=== PATIENT | male | born 1995 | race Hispanic/Latino ===

== ENCOUNTER 2017-09-17 18:29 | Emergency (ER) | payer BC ==
--- NOTE | 2017-09-19 12:59 | EKG ---
Test Reason : Blood Pressure : / mmHG Vent. Rate : 123 BPM Atrial Rate : 123 BPM P-R Int : 150 ms QRS Dur : 078 ms QT Int : 328 ms P-R-T Axes : 040 -11 010 degrees QTc Int : 469 ms Sinus tachycardia Possible Left atrial enlargement Left ventricular hypertrophy Abnormal ECG Confirmed by ZAHIDA ORANTES ([id number]), health editor KELLY SABILLON ([id number]) on 09/19/2017 12:58:45 PM Referred By: Confirmed By:ZAHIDA ORANTES
== END 2017-09-17 19:17 | disposition home or self-care (01) ==
LOC: ERS 18:29
DX: Z02.89 Encounter for other administrative examinations (principal); F41.9 Anxiety disorder, unspecified; F17.210 Nicotine dependence, cigarettes, uncomplicated
CPT/HCPCS: 93005; 99406

== ENCOUNTER 2017-10-03 18:46 | Emergency (ER) | payer BC | END 2017-10-03 19:16 | disposition left against medical advice (07) | LOC: ERS 18:46 | DX: Z53.21 Procedure and treatment not carried out due to patient leaving prior to being seen by health care provider (principal) ==

== ENCOUNTER 2019-03-11 10:47 | Inpatient (IN) | payer BC ==
[2019-03-11 11:29] LABS: #Basophils 0.1 thou/uL (0.0-0.2); #Eosinphils 0.2 thou/uL (0.0-0.7); #Lymphocytes 1.3 thou/uL (1.20-3.40); #Monocytes 0.7 thou/uL (0.11-0.59); #Neutrophils 10.3 thou/uL (1.40-6.50); %Basophils 0.4 % (0.0-1.0); %Eosinophils 1.8 % (0.0-10.0); %Monocytes 5.3 % (0.0-10.0); %Neutrophils 82.6 % (42.0-75.0); Hemoglobin 7.5 g/dL (14.0-18.0); Mean Corpuscular Hemoglobin 39.1 pg (27.0-31.0); Mean Platelet Volume 8.7 fL (7.4-10.4); Platelet Count 176 thou/uL (130-400); RBC Distribution Width 22.2 % (11.5-14.5); Red Blood Cell (RBC) Count 1.91 mill/uL (4.70-6.10); White Blood Cell (WBC) Count 12.5 thou/uL (4.8-10.8)
[2019-03-11 11:42] LABS: PTT 43.5 SEC (22.9-36.1); Prothrombin Time 43.9 SEC (12.0-14.7)
[2019-03-11 11:52] LABS: INR-International Normal Ratio 4.7
[2019-03-11 12:06] LABS: Base Excess-Venous -12.1 mmol/L (-2.0 to 3.0); Bicarbonate (HCO3v) 13.6 mmol/L (22.0-28.0); CO2 Tension (PvCO2) 29.3 mmHg (40.0-50.0); Calcium, Ionized 1.51 mmol/L (See Comments:); Chloride 108 mmol/L (98-107); Hemoglobin - Calc 7.9 g/dL (14.0-18.0); O2 Tension (PvO2) 36.9 mmHg (35.0-45.0); Sodium 134 mmol/L (138-145); T. Carbon Dioxide 14.5 mmol/L (22.0-28.0); pH (Venous) 7.274 (7.320-7.430)
[2019-03-11 12:34] LABS: Bilirubin, Total 37.4 mg/dL (0.2-1.2)
--- NOTE | 2019-03-11 13:27 | PDOC.FPRHP ---
- History of Present Illness Chief Complaint: abnormal lab History of Present Illness: 23yo M with pmh of alcohol misuse and liver cirrhosis presents on request of his GI clinic (Dr. Miller) to the hospital for an "abnormal lab". Pts reports that he has been more confused and lethargic at home over the last 3 days. He has also been eating and drinking less in general. He has had easier bleeding and bruising over the last few weeks. Since starting home lactulose he has had 7-8 BMs per day and maintains good orientation except over the last few days where he was confused and only having 5-6 BMs per day. Regarding his cirrhosis he was diagnosed on February 06 and spent some time hospitalized at [facility]. He was discharged and sent to rehab. DC from rehab 2 weeks ago. Pt has hx of drinking over 8 standardized drinks in malt liquor and beer per day prior to Dx but has not had any alcohol since diagnosis. Pt has never had UGIB. No nausea no vomiting. ED Course: labwork only - Allergies/Adverse Reactions Allergies Allergy/AdvReac Type Severity Reaction Status Date / Time No Known Allergies Allergy Unverified 03/11/19 15:47 - Home Medications Medication Instructions Recorded Confirmed Type AcetaZOLAMIDE [Diamox] 250 mg PO TID 03/11/19 03/11/19 History Citalopram [CeleXA] 10 mg PO DAILY 03/11/19 03/11/19 History Citalopram [CeleXA] 10 mg PO DAILY 03/11/19 03/11/19 History Lactulose 10 GM/15ML Oral Michelle 20 gm PO TID 03/11/19 03/11/19 History [Lactulose] Potassium Chloride [Klor-Con M20] 20 meq PO DAILY 03/11/19 03/11/19 History Spironolactone [Aldactone] 100 mg PO DAILY 03/11/19 03/11/19 History traMADol HCl [Tramadol HCl] 50 mg PO DAILY PRN 03/11/19 03/11/19 History traMADol HCl [Tramadol HCl] 50 mg PO Q4HR PRN 03/11/19 03/11/19 History - History PMHx: Anxiety, Liver cirrhosis 2/2 alcohol mis-use PSHx: L leg surgery FHx: non contributory Social: previous alcohol misuse (sober since 02/06/2019), previous smoking (none since 02/06), no drugs - Review of Systems General: reports: fatigue. denies: fever/chills Eyes: denies: eye pain, vision changes ENT: denies: nasal congestion, rhinorrhea Respiratory: denies: cough, shortness of breath Cardiovascular: denies: chest pain, palpitation Gastrointestinal: denies: nausea, vomiting, constipation, abdominal pain, GI bleeding Genitourinary: denies: incontinence, dysuria Skin: reports: jaundice. denies: rashes Musculoskeletal: denies: pain, tenderness Neurological: denies: syncope, seizure Psychological: reports: anxiety. denies: depression - Vital signs BP: 126/62, Pulse: 99, RR 20, weight 72kg, Temp: 97.7 (Oral), O2 sat: 100 on Room Air, Time: 03/11/2019 10:53. - Physical Exam Constitutional: other (pt appears fatigued, only answering questions non verbally) HEENT: EOMI, grossly normal vision, grossly normal hearing, other (scleral icterus) Neck: supple, trachea midline Chest: no-tender to palpation Heart: RRR, other (grade 4/6 holosystolic murmur) Lungs: CTAB, no respiratory distress Abdomen: soft, non-tender, no masses/distention Musculoskeletal: normal structure -Musculoskeletal: bilat LE contracted to with some increased tone. Neurological: normal sensation Skin: good turgor -Skin: jaundice Heme/Lymphatic: no purpura, no petechia -Psychiatric: non verbal but communcative with head nods FMR H&P: Results - Labs Result Diagrams: 03/11/19 11:11 03/11/19 11:11 Lab results: WBC 12.5 thou/uL (4.8-10.8) H 03/11/19 11:11 Hgb 7.5 g/dL (14.0-18.0) L 03/11/19 11:11 Hct 24.1 % (42.0-52.0) L 03/11/19 11:11 MCV 126.0 fL (78.0-98.0) H 03/11/19 11:11 Plt Count 176 thou/uL (130-400) 03/11/19 11:11 Neutrophils % 82.6 % (42.0-75.0) H 03/11/19 11:11 VBG pCO2 29.3 mmHg (40.0-50.0) L 03/11/19 12:03 VBG pO2 36.9 mmHg (35.0-45.0) 03/11/19 12:03 Lactic Acid 1.4 mmol/L (0.5-2.2) 03/11/19 11:25 Total Bilirubin 37.4 mg/dL (0.2-1.2) H 03/11/19 11:11 FMR H&P: A/P - Problem List (1) Acute liver failure Current Visit: Yes Status: Acute (2) Cirrhosis Current Visit: Yes Status: Acute Code(s): K74.60 - UNSPECIFIED CIRRHOSIS OF LIVER (3) History of alcohol abuse Current Visit: Yes Status: Acute Code(s): F10.11 - ALCOHOL ABUSE, IN REMISSION (4) Acute metabolic encephalopathy Current Visit: Yes Status: Acute Code(s): G93.41 - METABOLIC ENCEPHALOPATHY - Plan Acute Liver Failure 2/2 Alcohol misuse A- MELD score 37 (52% 3 month mortality), GI consulted appreciate recs. Pt is in need of transplant P- initiate transfer to transplant center -f/u GI recs Metabolic encephalopathy 2/2 above A- Ammonia > 925 likely main contributor, Pt baseline is fully alert and oriented per P- Lactulose DE until -bedside dysphagia study -Lactulose PO q4h after swallow study passed systolic murmur A- unclear if acute vs chronic. pt is hemodynamically stable P- recommend considering echo and outpt f/u Macrocytic anemia A- Hgb slightly below baseline, denies upper or lower GIB P- will transfuse if Hgb < 7 Hyperammonemia -2/2 above, plan per above Elevated INR -2/2 above, plan per above hyperbilirubinemia -2/2 above, plan per above Anxiety -home citalopram CODE: FULL FMR H&P: Upper Level - Pertinent history 23 yo M with PMHx recently diagnosed alcoholic cirrhosis presents with 2-3 days of altered mental status as well as being told by Dr. Miller's office that his recent lab work was abnormal and he needed to proceed to ER for evaluation. His who is his primary caregiver states that he has been faithfully taking mediations as prescribed and a few days ago became a bit more lethargic and confused. He woke up last night and though the was hearing his daughter when she wasn't in the room. He is usually alert and oriented x3. He doesn't ambulate and family changes his briefs. He usually has 7-8 BM a day but the last few days has had about 5. reports easy bruising and he also started to have some gum bleeding in the last day. - Pertinent findings Vital signs reviewed. Intermittently tachycardic and borderline tachypneic. WNL at time of exam. Gen: awake, somewhat alert and will answer yes/no questions but is not forming verbal responses HEENT: NCAT, icteric sclera, gums with dried blood, trachea midline CV: RRR, systolic murmur RESP: CTAB ABD: soft, NTND, bowel sounds present, liver edge palpable EXT: no edema, expresses discomfort with stretching them out, bruise in R akesr NEURO: not verbalizing clear responses, follows commands, strength equal throughout, +asterixis SKIN: spider angiomata noted on chest, tattoos, bruising on R akers - Plan Date/Time: 03/11/19 1323 23 yo M with alcoholic cirrhosis here with AMS likely 2/2 hyperammonemia 1. AMS 2/2 Hyperammonemia - Will titrate up on lactulose to at least 7-8 BM daily - Trend ammonium - Bedside swallow 2. Acute liver failure superimposed on alcoholic cirrhosis - Will confirm Hep C, HIV, RPR have been done - Other labs at baseline - Will consult GI as he was sent from Dr. Miller's office 3. Macrocytic anemia - Slightly below baseline - Will consider transfusion if symptomatic or drops < 7 4. Hyponatremia - Different on VBG - Will trend 5. SIRS - Slightly elevated WBC, tachycardia (resolved currently) - Will give SBP prophylaxis 6. INR elevated - 2/2 liver disease - Bleeding precautions 7. Systolic murmur - Unclear if chronic - Will consider echo pending clinical course - Recommend OP w/u I, Thais Obando MD, PGY-3, have evaluated this patient and agree with findings/ plan as outlined by grad intern resident. Pertinent changes/additions are listed here.
[2019-03-11 13:36] LABS: ALT (SGPT) 74 U/L (8-55); AST (SGOT) 153 U/L (5-34); Albumin 2.6 g/dL (3.5-5.0); Alkaline Phosphatase 103 U/L (40-150); Anion Gap 14 mmol/L (10-20); BUN (Urea Nitrogen) 33 mg/dL (8.9-20.6); CK (CPK) 104 U/L (30-200); Calc. Creatinine Clearance 0 mL/min (70-130); Calcium 10.1 mg/dL (7.8-10.44); Carbon Dioxide 12 mmol/L (22-29); Chloride 106 mmol/L (98-107); Estimated GFR-MDRD Greater than 90; Globulin 6.2 g/dL (2.4-3.5); Glucose 116 mg/dL (70-105); Lipase 31 U/L (8-78); Potassium 4.5 mmol/L (3.5-5.1); Protein, Total 8.8 g/dL (6.0-8.3); Sodium 127 mmol/L (136-145)
[2019-03-11 14:17] VITALS: BMI 23.1
[2019-03-11] MEDS ORDERED: Lactulose 10 GM/15 ML Oral Solution PO SCH (16:00)
[2019-03-11] MEDS ORDERED: Lactulose 10 GM/15 ML Oral Solution PR SCH ×2 (16:00→21:30)
--- NOTE | 2019-03-11 16:58 | CON ---
DATE OF CONSULTATION: 03/11/2019 CHIEF COMPLAINT: Confusion. HISTORY OF PRESENT ILLNESS: Mr. Bhardwaj is a 23-year-old man, who was diagnosed with acute alcoholic hepatitis at [facility] in [place] a month ago. He spent a couple of weeks in the hospital there and was apparently ultimately deemed to not be a transplant candidate and he was discharged to rehab. He spent 2 weeks in rehab. Over the last week, the patient has had confusion. This is worsened over the last couple of days. Apparently, he complained of leg pain or leg weakness while he was at [facility], and that is why he was transferred to the rehab. He has had no diarrhea, constipation, or blood in the stool known. Currently, he is encephalopathic and unable to communicate verbally. His mother is at the bedside along with his and they gave the history. The patient was able to wake up enough to eat over the weekend. He has been using a urinal in his bed because of leg weakness apparently. His last drink of alcohol was around February 06. He has had no other known medical problems prior to that. PAST MEDICAL HISTORY: Acute alcoholic hepatitis diagnosed a month ago, otherwise negative. PAST SURGICAL HISTORY: Leg surgery. FAMILY HISTORY: Negative for liver disease or GI malignancy. SOCIAL HISTORY: Past heavy alcohol use. Last use was 02/06/2019. He quit smoking at that time as well. No drug use. He is and has 4 children. ALLERGIES: NO KNOWN DRUG ALLERGIES. MEDICATIONS: Prior to admission; 1. Spironolactone 100 mg daily. 2. Acetazolamide 250 mg 3 times daily. 3. Celexa. 4. Lactulose 20 g 3 times daily. 5. Potassium chloride 20 mEq daily. 6. Tramadol 50 mg as needed. REVIEW OF SYSTEMS: Unobtainable due to his encephalopathy. PHYSICAL EXAMINATION: VITAL SIGNS: Temperature 97.5, pulse 98, blood pressure 129/59. GENERAL: He is jaundiced. He is sleeping. HEENT: His eyes have scleral icterus. Oropharynx is dry mucous membranes. LYMPH NODES: There is no cervical or supraclavicular lymphadenopathy. LUNGS: Clear to auscultation bilaterally. HEART: Regular rate and rhythm without murmur. ABDOMEN: Soft. No obvious tenderness. Bowel sounds are present. EXTREMITIES: No lower extremity edema. LABORATORY DATA: White blood cell count 12.5, hemoglobin 7.5, platelets 176. INR 4.7. Sodium 134, potassium 5.0, chloride 108, BUN 33, creatinine 0.94, bilirubin 37.4. AST 153, ALT 74, alkaline phosphatase 103, ammonia greater than 925, albumin 2.6. IMPRESSION: 1. Severe alcoholic hepatitis with liver failure with bilirubin of 37.4 and INR of 4.7 and encephalopathy. His last drink was 02/06/2019. His creatinine is normal at 0.94. 2. Hepatic encephalopathy. We will start with lactulose enema, and once he can safely swallow, we will follow with oral lactulose. 3. Anemia. He has light brown stool by rectal exam now. There are no signs of overt bleeding. I do not have any other baseline labs to compare to. RECOMMENDATIONS: 1. Recommend transfer to a liver transplant center. While his last alcohol use was little over a month ago, given his young age at 23 with 4 small children and social support with his and mother, he is potentially an adequate transplant candidate. This needs to be determined by the transplant center. Initiation of transfer has been performed and we are waiting to hear back. The patient does have [employer] insurance. 2. Lactulose enema followed by oral lactulose. 3. Obtain previous liver workup from [facility] including the viral hepatitis panel, ceruloplasmin, alpha-1 antitrypsin, autoimmune markers, etc. Job ID: [id number]
[2019-03-11] MEDS ORDERED: Sodium Chloride 0.9% 1,000 ML IV SCH ×2 (21:30→22:00)
[2019-03-11] MEDS ORDERED: Phytonadione 10 MG/ML AMP SC SCH (22:15)
[2019-03-12 00:14] VITALS: BP 114/45; TEMP 97.9
== END 2019-03-12 00:50 | disposition short-term general hospital (02) | DRG 432 ==
LOC: ERS 10:47 → T4-A 12:25
PROVIDERS: ADMIT Family Medicine; ATTEND Family Medicine
DX: K70.40 Alcoholic hepatic failure without coma (principal); G93.41 Metabolic encephalopathy; E72.20 Disorder of urea cycle metabolism, unspecified; R65.10 Systemic inflammatory response syndrome (SIRS) of non-infectious origin without acute organ dysfunction; K70.30 Alcoholic cirrhosis of liver without ascites; F10.10 Alcohol abuse, uncomplicated; D53.9 Nutritional anemia, unspecified; F41.9 Anxiety disorder, unspecified; R01.1 Cardiac murmur, unspecified; K70.10 Alcoholic hepatitis without ascites
CPT/HCPCS: 36430; 80053; 80074; 82105; 82140; 82330; 82390; 82550; 82728; 82803; 83516; 83540; 83550; 83605; 83690; 84484; 85025; 85610; 85730; 86038; 86225; 86803; 86850; 86900; 86901; 93005; 94760; J3430; P9059